=== PATIENT | female | born 1995 | race Caucasian/White ===

== ENCOUNTER 2017-06-29 13:12 | Emergency (ER) | payer OTHER, BC ==
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
--- NOTE | 2017-06-29 15:40 | CR ---
EXAMINATION: Cervical spine HISTORY: Pain COMPARISON: None TECHNIQUE: AP and lateral views FINDINGS: Mild straightening of the normal cervical lordosis. Vertebral body heights and disc spaces appear grossly maintained. No fracture or dislocation. Facet alignment is preserved. Bone mineralizat ion is normal. The prevertebral soft tissues are unremarkable. IMPRESSION: Grossly unremarkable cervical spine.
--- NOTE | 2017-06-29 15:44 | CT ---
EXAMINATION: Non contrast CT head. Coronal and sagittal reformats. HISTORY: Pain FINDINGS: No evidence of intra or extra axial hemorrhage, mass, midline shift, hydrocephalus or edema. No hypoattenuation changes in the major vascular territories to suggest acute infarct. No abnormal intracranial calcifications are detected. No evidence of substantial vascular calcificat ions. Paranasal sinuses and mastoid air cells are well aerated without substantial findings. The orbits an d globes are symmetric. Pituitary fossa appears unremarkable. Calvarium is intact. No evidence of skull fracture. IMPRESSION: No acute intracranial findings.
== END 2017-06-29 16:11 | disposition home or self-care (01) ==
LOC: MW.ED 13:12
DX: S06.0X0A Concussion without loss of consciousness, initial encounter (principal); F32.9 Major depressive disorder, single episode, unspecified; Z79.899 Other long term (current) drug therapy; V89.2XXA Person injured in unspecified motor-vehicle accident, traffic, initial encounter; Y92.410 Unspecified street and highway as the place of occurrence of the external cause
CPT/HCPCS: 70450; 70450-26; 72040; 72040-26; 99283; 99284-25